=== PATIENT | female | born 1965 | race Caucasian/White ===

== ENCOUNTER 2019-04-22 08:50 | Day surgery (SDC) | payer OTHER ==
[~2019-04-22] VITALS: Ht 157.5 cm; Wt 73.6 kg
[~2019-04-22 08:50] MED LIST: ACET500; CLIN300 PO; DOXY100 PO; HYDACE5 PO; METR500 PO; PROACE100 PO
--- NOTE | 2019-04-22 09:23 | NUR ---
04/22/19 0922 Domi Escaelra 1 MISSED IV IN RH BY DANNIELLE 1 GOOD IV IN RAC BY DANNIELLE PT TOW
== END 2019-04-22 11:00 | disposition home or self-care (01) ==
LOC: ORSCSDS 08:50
PROVIDERS: Internal Medicine Gastroenterology
PROC: 0DB48ZX Excision of Esophagogastric Junction, Via Natural or Artificial Opening Endoscopic, Diagnostic (ICD-10-PCS; principal; 2019-04-22 10:00)
PROC: 0DBE8ZX Excision of Large Intestine, Via Natural or Artificial Opening Endoscopic, Diagnostic (ICD-10-PCS; principal; 2019-04-22 10:00)
DX: R10.13 Epigastric pain (principal); Z12.11 Encounter for screening for malignant neoplasm of colon; K21.0 Gastro-esophageal reflux disease with esophagitis; R74.8 Abnormal levels of other serum enzymes
CPT/HCPCS: 88305; 88312; J2704; J7120

== ENCOUNTER → 2019-07-05 | Outpatient (CLI) | payer OTHER ==
[2019-07-09 16:07] LABS: HPV 16 Negative (Negative); HPV 18 Negative (Negative); HPV OTHER HR TYPES Positive (Negative)
== END | disposition home or self-care (01) ==
LOC: LAB SHORT 14:01 → LAB 14:01
PROVIDERS: Obstetrics & Gynecology Gynecology
DX: Z12.72 Encounter for screening for malignant neoplasm of vagina (principal)
CPT/HCPCS: 87624; 87625; G0123

== ENCOUNTER → 2019-08-01 | Outpatient (CLI) | payer OTHER | END | disposition home or self-care (01) | LOC: LAB SHORT 14:09 → PLD 14:09 | DX: D04.39 Carcinoma in situ of skin of other parts of face (principal) | CPT/HCPCS: 88305 ==

== ENCOUNTER → 2020-03-02 | Outpatient (CLI) | payer OTHER | END | disposition home or self-care (01) | LOC: PLD 13:55 → LAB SHORT 13:55 | DX: D22.121 Melanocytic nevi of left upper eyelid, including canthus (principal) | CPT/HCPCS: 88305 ==

== ENCOUNTER → 2020-05-27 | Outpatient (CLI) | payer OTHER ==
[2020-05-29 15:20] LABS: CORONAVIRUS (COVID19) CSH-NRL Negative (Negative)
== END ==
LOC: LAB SHORT 11:47 → LAB 11:47
PROVIDERS: Physician Assistant Medical
DX: R05 Cough (principal); Z20.828 Contact with and (suspected) exposure to other viral communicable diseases
CPT/HCPCS: U0003

== ENCOUNTER 2020-12-16 09:22 | Day surgery (SDC) | payer OTHER, SELFPAY ==
[~2020-12-16] VITALS: Ht 157.5 cm; Wt 76.9 kg
[~2020-12-16 09:22] MED LIST changes: +ALMACONE SUSPE355 ML PO; +Acetaminophen325 M1 PO; +Calcium Carbon500 MG PO
== END 2020-12-16 11:10 | disposition home or self-care (01) ==
LOC: ORSCSDS 09:22
PROVIDERS: Internal Medicine Gastroenterology
PROC: 0DB68ZX Excision of Stomach, Via Natural or Artificial Opening Endoscopic, Diagnostic (ICD-10-PCS; principal; 2020-12-16 10:30)
PROC: 0DB58ZX Excision of Esophagus, Via Natural or Artificial Opening Endoscopic, Diagnostic (ICD-10-PCS; principal; 2020-12-16 10:30)
DX: R10.13 Epigastric pain (principal); K31.9 Disease of stomach and duodenum, unspecified
CPT/HCPCS: 87081; 88305; J2704; J7120